=== PATIENT | male | born 1990 | race African-American/Black ===

== ENCOUNTER 2016-07-15 14:11 | Emergency (ER) | payer OTHER ==
[~2016-07-15] VITALS: Ht 167.6 cm; Wt 63.5 kg
[2016-07-15 14:24] VITALS: BP 105/58
[2016-07-15] MEDS ORDERED: PRED20TA PO (14:41)
--- NOTE | 2016-07-15 14:41 | PHYS DOC ---
Past Medical History Past Medical History: No Pertinent History Past Surgical History: No Surgical History Alcohol Use: Occasionally Drug Use: Marijuana Adult General Chief Complaint Chief Complaint: EYE PROBLEMS HPI HPI Patient is a 25 year old male presents emergency Department today with complaint of sudden, atraumatic left side facial swelling and also swelling to his lips that began approximately 2 and half to 3 hours ago. Patient states he was just walking about and felt a funny feeling to his face whenhe started having swelling. He denies any shortness of breath or throat swelling. He states he's had episodes of this happen in the past. He denies any previous history of angioedema. It is not taking any medications on a daily basis. Review of Systems Review of Systems Constitutional: Denies fever or chills [] Eyes: Denies change in visual acuity, redness, or eye pain [] HENT: Denies nasal congestion or sore throat [] Respiratory: Denies cough or shortness of breath [] Cardiovascular: No additional information not addressed in HPI [] GI: Denies abdominal pain, nausea, vomiting, bloody stools or diarrhea [] : Denies dysuria or hematuria [] Musculoskeletal: Denies back pain or joint pain [] Integument: Denies rash or skin lesions [] Neurologic: Denies headache, focal weakness or sensory changes [] Endocrine: Denies polyuria or polydipsia [] Current Medications Current Medications Current Medications Medications (Trade) Dose Ordered Sig/Irene Start Time Stop Time Status Last Admin Dose Admin Diphenhydramine HCl (Benadryl) 25 mg 1X ONCE 07/15/16 14:45 07/15/16 14:49 DC 07/15/16 14:45 25 MG Prednisone (Prednisone) 50 mg 1X ONCE 07/15/16 14:45 07/15/16 14:49 DC 07/15/16 14:45 50 MG Allergies Allergies Allergies Coded Allergies Type Severity Reaction Last Updated Verified No Known Drug Allergies 07/15/16 No Physical Exam Physical Exam Constitutional: Well developed, well nourished, no acute distress, non-toxic appearance. [] HENT: Normocephalic, atraumatic, bilateral external ears normal, oropharynx moist, no oral exudates, nose normal. Patient with mild left periorbital edema that does not involve hot, erythematous skin. There are no fluctuant pockets, indurated skin or purulent drainage. There is no angioedema. Eyes: PERRLA, EOMI, conjunctiva normal, no discharge. Patient does not complain of photophobia or eye pain. Neck: Normal range of motion, no tenderness, supple, no stridor. [] Cardiovascular:Heart rate regular rhythm, no murmur [] Lungs & Thorax: Bilateral breath sounds clear to auscultation [] Abdomen: Bowel sounds normal, soft, no tenderness, no masses, no pulsatile masses. [] Skin: Warm, dry, no erythema, no rash. Skin is described above. Back: No tenderness, no CVA tenderness. [] Extremities: No tenderness, no cyanosis, no clubbing, ROM intact, no edema. [] Neurologic: Alert and oriented X 3, normal motor function, normal sensory function, no focal deficits noted. [] Psychologic: Affect normal, judgement normal, mood normal. [] Current Patient Data Vital Signs Vital Signs Date Time Temp Pulse Resp B/P Pulse Ox O2 Delivery O2 Flow Rate FiO2 07/15/16 14:24 97.5 83 18 98 Room Air 97.5 EKG EKG [] Radiology/Procedures Radiology/Procedures [] Course & Med Decision Making Course & Med Decision Making Pertinent Labs and Imaging studies reviewed. (See chart for details) [] Dragon Disclaimer Dragon Disclaimer This electronic medical record was generated, in whole or in part, using a voice recognition dictation system. Departure Departure Impression: Primary Impression: Contact dermatitis Disposition: HOME, SELF-CARE Condition: GOOD Patient Instructions: Contact Dermatitis, [id number] Additional Instructions: 1. It is unknown which or skin came in contact with causes swelling. 2. Take the medications as prescribed. You can also take 25 mg of Benadryl every 6 hours. 3. You may choose to consider taken a daily antihistamine/allergy medicine such as Zyrtec, Claritin or Ya as we are getting into allergy season. 4. Review the discharge instructions for self-care and reasons to return the emergency department. 5. Follow-up with a primary care doctor within the next 7-10 days. If you do not have one, then use the pamphlet provided for assistance in finding one. Scripts Prednisone 20 Mg Tablet2 Tab PO DAILY #5 TAB Prov:JUANY LEYVA 07/15/16 JUANY LEYVA Jul 15, 2016 14:41
[2016-07-15] MEDS ORDERED: PREDNISONE 10 MG TABLET PO ONE (14:45)
[2016-07-15] MEDS ORDERED: DIPHENHYDRAMINE HCL 25 MG CAPSULE PO ONE (14:45)
== END 2016-07-15 14:57 | disposition home or self-care (01) ==
LOC: ER 14:11
DX: L25.9 Unspecified contact dermatitis, unspecified cause (principal); F12.10 Cannabis abuse, uncomplicated
CPT/HCPCS: 99283; J7512; Q0163

== ENCOUNTER 2016-10-17 00:29 | Emergency (ER) | payer OTHER ==
[~2016-10-17] VITALS: Ht 167.6 cm; Wt 72.6 kg
[~2016-10-17 00:29] MED LIST: PRED20TA PO
[2016-10-17] MEDS ORDERED: diphenhydrAMINE 50 MG/ML VIAL ONE (00:44)
[2016-10-17] MEDS ORDERED: FAMOTIDINE 20 MG/2 ML VIAL ONE (00:44)
[2016-10-17] MEDS ORDERED: methylPREDNISolone SOD SUCC PF 125 MG/2 ML VIAL. ONE (00:44)
[2016-10-17] MEDS ORDERED: FAMOTIDINE 20 MG/2 ML VIAL IV ONE (01:45)
[2016-10-17] MEDS ORDERED: methylPREDNISolone SOD SUCC PF 125 MG/2 ML VIAL. IV ONE (01:45)
[2016-10-17] MEDS ORDERED: diphenhydrAMINE 50 MG/ML VIAL IVP ONE (01:45)
[2016-10-17 02:00] VITALS: BP 107/60
[2016-10-17] MEDS ORDERED: DIPH25CA58 PO (02:40)
[2016-10-17] MEDS ORDERED: PRED50TA PO (02:40)
[2016-10-17] MEDS ORDERED: FAMO-63 PO (02:40)
--- NOTE | 2016-10-17 02:40 | PHYS DOC ---
Past Medical History Past Medical History: No Pertinent History Past Surgical History: No Surgical History Alcohol Use: Occasionally Drug Use: Marijuana Adult General Chief Complaint Chief Complaint: ALLERGIC REACTION HPI HPI Patient is a 25 year old [f__sex] who presents with [] Review of Systems Review of Systems Constitutional: Denies fever or chills [] Eyes: Denies change in visual acuity, redness, or eye pain [] HENT: Denies nasal congestion or sore throat [] Respiratory: Denies cough or shortness of breath [] Cardiovascular: No additional information not addressed in HPI [] GI: Denies abdominal pain, nausea, vomiting, bloody stools or diarrhea [] : Denies dysuria or hematuria [] Musculoskeletal: Denies back pain or joint pain [] Integument: Denies rash or skin lesions [] Neurologic: Denies headache, focal weakness or sensory changes [] Endocrine: Denies polyuria or polydipsia [] Current Medications Current Medications Current Medications Medications (Trade) Dose Ordered Sig/Irene Start Time Stop Time Status Last Admin Dose Admin Diphenhydramine HCl (Benadryl) 50 mg 1X ONCE 10/17/16 01:45 10/17/16 01:46 DC 10/17/16 00:58 50 MG Famotidine (Pepcid) 20 mg 1X ONCE 10/17/16 01:45 10/17/16 01:46 DC 10/17/16 00:58 20 MG Methylprednisolone Sodium Succinate (SOLU-Medrol 125MG VIAL) 125 mg 1X ONCE 10/17/16 01:45 10/17/16 01:46 DC 10/17/16 00:58 125 MG Allergies Allergies Allergies Coded Allergies Type Severity Reaction Last Updated Verified No Known Drug Allergies 07/15/16 No Physical Exam Physical Exam Constitutional: Well developed, well nourished, no acute distress, non-toxic appearance. [] HENT: Normocephalic, atraumatic, bilateral external ears normal, oropharynx moist, no oral exudates, nose normal. [] Eyes: PERRLA, EOMI, conjunctiva normal, no discharge. [] Neck: Normal range of motion, no tenderness, supple, no stridor. [] Cardiovascular:Heart rate regular rhythm, no murmur [] Lungs & Thorax: Bilateral breath sounds clear to auscultation [] Abdomen: Bowel sounds normal, soft, no tenderness, no masses, no pulsatile masses. [] Skin: Warm, dry, no erythema, no rash. [] Back: No tenderness, no CVA tenderness. [] Extremities: No tenderness, no cyanosis, no clubbing, ROM intact, no edema. [] Neurologic: Alert and oriented X 3, normal motor function, normal sensory function, no focal deficits noted. [] Psychologic: Affect normal, judgement normal, mood normal. [] Current Patient Data Vital Signs Vital Signs Date Time Temp Pulse Resp B/P (MAP) Pulse Ox O2 Delivery O2 Flow Rate FiO2 10/17/16 00:40 98.0 66 16 116/60 (78) 100 Room Air 98.0 EKG EKG [] Radiology/Procedures Radiology/Procedures [] Course & Med Decision Making Course & Med Decision Making Pertinent Labs and Imaging studies reviewed. (See chart for details) [] Dragon Disclaimer Dragon Disclaimer This electronic medical record was generated, in whole or in part, using a voice recognition dictation system. Departure Departure Impression: Primary Impression: Allergic reaction Additional Impression: Angioedema Disposition: HOME, SELF-CARE Condition: IMPROVED Referrals: NO PCP (PCP) Patient Instructions: Angioedema, Hives Scripts Prednisone (PREDNISONE) 50 Mg Tablet 1 TAB PO DAILY, #5 TAB Prov: PAMELLA MUNIZ MD 10/17/16 Famotidine (PEPCID) 20 Mg Tablet 20 MG PO BID, #20 TAB Prov: PAMELLA MUNIZ MD 10/17/16 Diphenhydramine Hcl (BENADRYL) 25 Mg Capsule 2 CAP PO Q6HRS Y for ITCHING, #14 CAP 2 Refills Prov: PAMELLA MUNIZ MD 10/17/16 Problem Qualifiers Primary Impression: Allergic reaction Encounter type: initial encounter Qualified Codes: T78.40XA - Allergy, unspecified, initial encounter Additional Impression: Angioedema Encounter type: initial encounter Qualified Codes: T78.3XXA - Angioneurotic edema, initial encounter PAMELLA MUNIZ MD Oct 17, 2016 02:40
== END 2016-10-17 02:48 | disposition home or self-care (01) ==
LOC: ER 00:29
DX: T78.3XXA Angioneurotic edema, initial encounter (principal); F12.10 Cannabis abuse, uncomplicated; Y92.89 Other specified places as the place of occurrence of the external cause
CPT/HCPCS: 96374; 96375; 99284; J1200; J2930; S0028